=== PATIENT | female | born 1945 | race Native Hawaiian/Other Pacific Islander ===

== ENCOUNTER 2017-04-19 06:48 | Day surgery (SDC) | payer MEDICARE, MEDICAID ==
[2016-10-02 10:33] VITALS: BMI 23.8
--- NOTE | 2017-04-19 07:50 | CP.SDSHP ---
Same Day Surgery H & P - History Proposed Procedure: Colonoscopy Pre-Op Diagnosis: Large colon polyp s/p piecemeal EMR, Follow up - Previous Medical/Surgical History Previous Surgical History: colonoscopy emr - Allergies Allergies: Allergies No Known Allergies Allergy (Verified 09/21/16 07:14) - Physical Exam General Appearance: nl Vital Signs: Vital Signs 04/19/17 07:14 Temperature 98.6 F Pulse Rate 76 Respiratory 17 Rate Blood Pressure 121/64 O2 Sat by Pulse 98 Oximetry Mental Status: Alert & Oriented x3 Neuro: WNL Heart: WNL Lungs: WNL GI: WNL - {Optional Preform as Required} Abdomen: WNL Rectal: WNL - Impression Impression: History of colon polyps, Advanced adenoma, Piecemeal polypectomy Pt. Evaluated Today:Candidate for Anesthesia & Procedure: Yes - Date & Time Date: 04/19/17 Time: 07:50 Short Stay Discharge - Short Stay Discharge Admitting Diagnosis/Reason for Visit: P/H COLONIC POLYPS Disposition: HOME/ ROUTINE
[2017-04-19] MEDS ORDERED: Propofol 10 mg/ml Inj (20 ML) ONE (07:51)
[2017-04-19] MEDS ORDERED: Lactated Ringer's 500 ML IV ONE ×2 (07:56)
[2017-04-19] MEDS ORDERED: Lactated Ringer's 500 ML IV SCH (08:00)
[2017-04-19 09:11] VITALS: RESP 15; O2SAT 100
[2017-04-19 09:33] VITALS: BP 118/66; PULSE 56; TEMP 97
== END 2017-04-19 09:31 | disposition home or self-care (01) ==
LOC: C.ENDO 06:48
PROVIDERS: ATTEND Internal Medicine
DX: D12.3 Benign neoplasm of transverse colon (principal); D12.5 Benign neoplasm of sigmoid colon; K64.8 Other hemorrhoids; D12.4 Benign neoplasm of descending colon
CPT/HCPCS: 45380; 88305; J2704; J3010; J7120

== ENCOUNTER 2017-07-19 06:36 | Day surgery (SDC) | payer MEDICARE, MEDICAID ==
[2017-07-19 07:03] VITALS: BMI 21.9
--- NOTE | 2017-07-19 07:45 | CP.SDSHP ---
Same Day Surgery H & P - History Proposed Procedure: Colonoscopy Pre-Op Diagnosis: Tubular adenoma - Allergies Allergies: Allergies No Known Allergies Allergy (Verified 07/19/17 07:01) - Physical Exam General Appearance: nl Vital Signs: Vital Signs 07/19/17 07:03 Temperature 97.1 F L Pulse Rate 79 Respiratory 19 Rate Blood Pressure 117/64 O2 Sat by Pulse 98 Oximetry Mental Status: Alert & Oriented x3 Neuro: WNL Heart: WNL Lungs: WNL GI: WNL - {Optional Preform as Required} Abdomen: WNL - Impression Impression: tubular adenoma Pt. Evaluated Today:Candidate for Anesthesia & Procedure: Yes - Date & Time Date: 07/19/17 Time: 07:44 Short Stay Discharge - Short Stay Discharge Admitting Diagnosis/Reason for Visit: P/H COLONIC POLYPS Disposition: HOME/ ROUTINE
[2017-07-19] MEDS ORDERED: Lactated Ringer's 1,000 ML IV ONE (08:00)
[2017-07-19] MEDS ORDERED: Propofol 10 mg/ml Inj (20 ML) ONE ×2 (08:05→08:32)
[2017-07-19] MEDS ORDERED: Simethicone 40 mg/0.6 ml Liquid (30 ml) ONE (08:14)
[2017-07-19] MEDS ORDERED: ePHEDrine 50 mg/ml Inj ONE (08:38)
[2017-07-19 09:36] VITALS: TEMP 98.2
[2017-07-19 09:37] VITALS: RESP 12
[2017-07-19 10:15] VITALS: BP 117/65; PULSE 54; O2SAT 97
== END 2017-07-19 10:00 | disposition home or self-care (01) ==
LOC: C.ENDO 06:36
PROVIDERS: ATTEND Internal Medicine
DX: D12.3 Benign neoplasm of transverse colon (principal); K64.8 Other hemorrhoids; D12.4 Benign neoplasm of descending colon
CPT/HCPCS: 45388; 88305; J2704; J7120